=== PATIENT | male | born 1985 | race Caucasian/White ===

== ENCOUNTER 2018-05-30 21:31 | Emergency (ER) | payer SELFPAY ==
[~2018-05-30] VITALS: Ht 177.8 cm; Wt 93.9 kg
[2018-05-31 00:03] VITALS: BP 143/88
== END 2018-05-31 00:03 | disposition home or self-care (01) ==
LOC: ED 21:31
DX: F43.9 Reaction to severe stress, unspecified (principal); R20.2 Paresthesia of skin